=== PATIENT | male | born 2000 ===

== ENCOUNTER 2024-01-16 12:42 | Outpatient (OUT) | payer OTHER, SELFPAY ==
--- NOTE | 2024-01-16 | XR_ITS ---
The [address] [address] Patient Name: KELLY CHONG MRN: [id number] date: 2000 Sex: M Assigned Patient Location: Current Patient Location: Accession/Order Number: [id number] Exam Date: 01/16/2024 12:57 Report Date: 01/18/2024 07:46 At the request of: NOAM JACOBO Procedure: XR hand LT min 3V PROCEDURE: XR hand LT min 3V COMPARISON: None. HISTORY: LEFT HAND PAIN FINDINGS: BONES:No fracture, acute abnormality, or significant arthropathy. SOFT TISSUES:Negative. No visible soft tissue swelling. EFFUSION:None visible. OTHER: Negative. XR/XR hand LT min 3V IMPRESSION: No acute fracture Electronically authenticated by: JAMISON DENNY Date: 01/18/2024 07:46
== END 2024-01-16 12:43 | disposition home or self-care (01) ==
LOC: EC 12:55
PROVIDERS: Visit Provider Orthopaedic Surgery
DX: M25.542 Pain in joints of left hand (principal)
CPT/HCPCS: 73130